=== PATIENT | female | born 1955 | race Caucasian/White ===

== ENCOUNTER 2021-02-05 11:34 | Observation (INO) | payer MEDICAID ==
[~2021-02-05] VITALS: Ht 157.5 cm; Wt 168.0 kg
--- NOTE | 2021-02-05 11:57 | NUR ---
EKG 1149
[2021-02-05 12:47] LABS: BASOPHILS # (AUTO) 0.1 X10'3 (0-0.2); BASOPHILS % (AUTO) 0.9 % (0-1); EOSINOPHILS # (AUTO) 0.4 X10'3 (0-0.9); LYMPHOCYTES # (AUTO) 2.8 X10'3 (1.1-4.8); LYMPHOCYTES % (AUTO) 35.7 % (21-51); MEAN CORPUSCULAR HEMOGLOBIN 27.7 PG (27.0-31.0); MEAN CORPUSCULAR HGB CONC 33.3 g/dL (33.0-36.5); MEAN CORPUSCULAR VOLUME 83.2 FL (78-98); MEAN PLATELET VOLUME 8.5 FL (7.4-10.4); MONOCYTES # (AUTO) 0.6 X10'3 (0-0.9); MONOCYTES % (AUTO) 7.5 % (2-12); NEUTROPHILS % (AUTO) 50.9 % (42-75); PLATELET COUNT 258 X10'3 (140-440); RED BLOOD COUNT 5.05 X10'6 (4.20-5.60); RED CELL DISTRIBUTION WIDTH 14.2 % (11.5-14.5); WHITE BLOOD COUNT 7.8 X10'3 (4.5-11.0)
[2021-02-05 12:59] LABS: D-DIMER 1.15 MG/L FEU (0-0.50)
[2021-02-05 13:02] LABS: ALANINE AMINOTRANSFERASE 24 U/L (12-78); ALBUMIN 3.9 G/DL (3.4-5.0); ALKALINE PHOSPHATASE 96 IU/L (46-116); ANION GAP 6 (8-16); ASPARTATE AMINO TRANSFERASE 20 U/L (10-37); BILIRUBIN,TOTAL 0.4 MG/DL (0.1-1.0); BLOOD UREA NITROGEN 21 MG/DL (7-18); BUN/CREATININE RATIO 26.3 (6.6-38.0); CALCIUM 9.2 MG/DL (8.5-10.1); CHLORIDE 104 MMOL/L (99-107); GLUCOSE 113 MG/DL (70-104); SODIUM 138 MMOL/L (135-145); TOTAL CARBON DIOXIDE 28.2 MMOL/L (24-32); TOTAL PROTEIN 7.9 G/DL (6.4-8.2); eGFR 72 ML/MIN
[2021-02-05] MEDS ORDERED: iohexol 350MG/ML 100ml bottle IV ONE (13:18)
[2021-02-05] MEDS ORDERED: nitroGLYCERIN 0.4mg SUBLingual tab SL PRN ×2 (13:25→13:55)
[2021-02-05] MEDS ORDERED: aspirin 81mg tab.chew PO ONE (13:25)
[2021-02-05] MEDS ORDERED: aminophylline 250mg/10ml inj. IV PRN (13:55)
[2021-02-05] MEDS ORDERED: morphine 2 MG/ML inj. syringe IV PRN ×2 (13:55)
[2021-02-05] MEDS ORDERED: metoprolol tartrate 1mg/ml inj IV PRN (13:55)
[2021-02-05] MEDS ORDERED: magnesium hydroxide 30ml (MOM) UD suspension PO PRN (13:55)
[2021-02-05] MEDS: normal saline 1000ml 1,000 ML IV SCH ×2 (13:55→19:46)
[2021-02-05] MEDS ORDERED: ondansetron/PF 4mg/2ml inj IV PRN (13:55)
[2021-02-05] MEDS ORDERED: regadenoson 0.4mg/5ml syringe IV PRN (13:55)
[2021-02-05] MEDS ORDERED: acetaminophen 325mg tablet PO PRN (13:55)
[2021-02-05] MEDS ORDERED: mag hydrox/Alum hydrox/simeth 30ml oral suspension PO PRN (13:55)
[2021-02-05] MEDS ORDERED: NICO-630 TD (14:16)
[2021-02-05] MEDS ORDERED: CHOL20002 PO (14:16)
[2021-02-05 15:00] VITALS: BP 117/58
--- NOTE | 2021-02-05 16:00 | NUR ---
Patient in room PCU 3017. I have received report from NANI Malhotra and had the opportunity to ask questions and assume patient care.
[2021-02-05 18:00] VITALS: BP 108/59
--- NOTE | 2021-02-05 18:37 | NUR ---
Problems reprioritized. Patient report given, questions answered & plan of care reviewed with NANI Johnston.
[2021-02-05] MEDS: heparin, porcine 5000 units/ml vial SQ SCH (21:09)
[2021-02-05 22:00] VITALS: BP 126/52
[2021-02-06 02:00] VITALS: BP 119/54
[2021-02-06 06:00] VITALS: BP 123/57
--- NOTE | 2021-02-06 06:42 | NUR ---
Patient in room PCU 3017. I have received report from NANI Johnston and had the opportunity to ask questions and assume patient care.
[2021-02-06 07:26] LABS: BASOPHILS # (AUTO) 0.1 X10'3 (0-0.2); BASOPHILS % (AUTO) 0.9 % (0-1); EOSINOPHILS # (AUTO) 0.3 X10'3 (0-0.9); EOSINOPHILS % (AUTO) 5.7 % (0-6); HEMATOCRIT 39.8 % (35.0-45.0); HEMOGLOBIN 13.1 g/dl (12.0-16.0); LYMPHOCYTES % (AUTO) 34.4 % (21-51); MEAN CORPUSCULAR HEMOGLOBIN 27.4 PG (27.0-31.0); MEAN CORPUSCULAR HGB CONC 32.9 g/dL (33.0-36.5); MEAN CORPUSCULAR VOLUME 83.4 FL (78-98); MEAN PLATELET VOLUME 8.6 FL (7.4-10.4); MONOCYTES # (AUTO) 0.4 X10'3 (0-0.9); MONOCYTES % (AUTO) 7.6 % (2-12); NEUTROPHILS % (AUTO) 51.4 % (42-75); PLATELET COUNT 213 X10'3 (140-440); RED BLOOD COUNT 4.77 X10'6 (4.20-5.60); RED CELL DISTRIBUTION WIDTH 14.2 % (11.5-14.5); WHITE BLOOD COUNT 5.8 X10'3 (4.5-11.0)
[2021-02-06 07:37] LABS: ALBUMIN 3.1 G/DL (3.4-5.0); ANION GAP 7 (8-16); BLOOD UREA NITROGEN 13 MG/DL (7-18); CALCIUM 8.3 MG/DL (8.5-10.1); CHLORIDE 108 MMOL/L (99-107); CREATININE 0.62 MG/DL (0.40-0.90); GLUCOSE 109 MG/DL (70-104); POTASSIUM 4.4 MMOL/L (3.5-5.1); SODIUM 141 MMOL/L (135-145); TOTAL CARBON DIOXIDE 25.6 MMOL/L (24-32); eGFR > 90 ML/MIN
[2021-02-06] MEDS: heparin, porcine 5000 units/ml vial SQ SCH (07:51)
[2021-02-06] MEDS ORDERED: cholecalciferol (vitamin D3) 1,000 unit (25mcg) tablet PO SCH (08:00)
[2021-02-06] MEDS ORDERED: nicotine 7mg patch - 24hr TD SCH (08:00)
--- NOTE | 2021-02-06 09:38 | NUR ---
Paged Dr. Colindres Patient refusing Yessica scan. Dr. Colindres to discharge.
[2021-02-06] MEDS: normal saline 1000ml 1,000 ML IV SCH (09:55)
[2021-02-06] MEDS ORDERED: CARV3.12 PO (10:18)
[2021-02-06] MEDS ORDERED: ATOR20TA PO (10:18)
[2021-02-06] MEDS ORDERED: ASPI81TA52 PO (10:18)
[2021-02-06] MEDS ORDERED: ISOS30TA84 PO (10:18)
[2021-02-06 11:00] VITALS: BP 129/69
--- NOTE | 2021-02-06 13:10 | NUR ---
Patient is stable for discharge per MD orders. All discharge instruction reviewed with patient and all questions answered. Patient will schedule follow up appointment. New prescriptions sent to patient's pharmacy in [place]. PIV discontinued with cannula intact. secured entrance monitor discontinued. Belongings collected and sent with patient. Patient walked to [facility] and was transported in a private vehicle with her son.
== END 2021-02-06 13:10 | disposition home or self-care (01) ==
LOC: ER 11:35 → ED HOLD 13:52 → PCU 3S 15:06
PROVIDERS: ADMIT Family Medicine; ATTEND Family Medicine
DX: F41.9 Anxiety disorder, unspecified (principal); R07.89 Other chest pain; E78.5 Hyperlipidemia, unspecified; F17.200 Nicotine dependence, unspecified, uncomplicated; Z79.899 Other long term (current) drug therapy
CPT/HCPCS: 36415; 71045; 71275; 78451; 80048; 80053; 83880; 84443; 84484; 85025; 85379; 87081; 93005; 96360; 96361; 96372; 99285; A9500; G0378; J1644; J7030; Q9967